=== PATIENT | male | born 1960 | race Caucasian/White ===

== ENCOUNTER 2018-02-19 12:14 | Day surgery (SDC) | payer OTHER ==
[2018-02-19] MEDS ORDERED: LR 1,000 ML IV ONE (12:44)
--- NOTE | 2018-02-19 13:13 | PDGENHP ---
History & Physical Chief Complaint: screening History of Present Illness: 57 year old male presents for screening Pertinent Past, Social, Family History: PMHx: MS Relevant Physical Exam: HEENT: anicteric. CV: RRR +s1s2. lungs: CTAB. Abd: soft, nt, + BS Cardiorespiratory Assessment: ASA 3
--- NOTE | 2018-02-19 13:23 | PDANEPAE ---
ANE History of Present Illness screening ANE Past Medical History - Cardiovascular History Hx Hypertension: No Hx Arrhythmias: No Hx Chest Pain: No Hx Coronary Artery / Peripheral Vascular Disease: No Hx CHF / Valvular Disease: No Hx Palpitations: No Cardiovascular History Comment: bp RUNS LOW - Pulmonary History Hx COPD: No Hx Asthma/Reactive Airway Disease: No Hx Recent Upper Respiratory Infection: No Hx Oxygen in Use at Home: No Hx Sleep Apnea: No Sleep Apnea Screening Result - Last Documented: Negative - Neurologic History Hx Cerebrovascular Accident: No Hx Seizures: No Hx Dementia: No - Endocrine History Hx Diabetes: No - Renal History Hx Renal Disorders: No - Liver History Hx Hepatic Disorders: No - Neurological & Psychiatric Hx Hx Neurological and Psychiatric Disorders: Yes Neurological / Psychiatric History Comment: MS wheelchair bound - Cancer History Hx Cancer: Yes Cancer History Comment: melanoma removed - Congenital Disorder History Hx Congenital Disorders: No - GI History Hx Gastrointestinal Disorders: No - Other Health History Other Health History: glaucoma - Chronic Pain History Chronic Pain: Yes (feet) - Surgical History Prior Surgeries: NONE ANE Review of Systems Review of Systems: - Exercise capacity METS (RN): 3 METS ANE Patient History - Allergies Allergies/Adverse Reactions: No Known Allergies Allergy (Verified 12/22/17 12:15) - Home Medications Home Medications: Baclofen [Lioresal (RX)] 10/03/11 [Last Taken Unknown] Gabapentin [Neurontin 400 MG (RX)] 10/03/11 [Last Taken Unknown] NORTRIPTYLINE HCL [Pamelor 75 mg] 10/03/11 [Last Taken Unknown] Rebif 10/03/11 [Last Taken Unknown] clonAZEPAM [Klonopin] 10/03/11 [Last Taken Unknown] ALPHAGAN P 0.1% (*) 12/22/17 [Last Taken Unknown] AMPYRA 12/22/17 [Last Taken Unknown] Dha 12/22/17 [Last Taken Unknown] Finasteride 12/22/17 [Last Taken Unknown] Fish Oil 1000 mg (*) 12/22/17 [Last Taken Unknown] Lumigan 0.01% (*) 12/22/17 [Last Taken Unknown] Naltrexone 12/22/17 [Last Taken Unknown] Testosterone 12/22/17 [Last Taken Unknown] Trospium Chloride 12/22/17 [Last Taken Unknown] - NPO status NPO Since - Liquids (Date): 02/19/18 NPO Since - Liquids (Time): 12:00 NPO Since - Solids (Date): 02/18/18 NPO Since - Solids (Time): 08:00 - Smoking Hx Smoking Status: Former smoker - Family Anes Hx Family Hx Anesthesia Complications: NONE ANE Labs/Vital Signs - Vital Signs Blood Pressure: 108/66 Heart Rate: 80 Respiratory Rate: 16 O2 Sat (%): 94 Height: 182.88 cm Weight: 74.843 kg ANE Physical Exam - Airway Neck exam: FROM Mallampati Score: Class 1 Mouth exam: normal dental/mouth exam - Pulmonary Pulmonary: no respiratory distress - Cardiovascular Cardiovascular: regular rate and rhythym - ASA Status ASA Status: II ANE Anesthesia Plan Total IV Anesthesia: Yes
[2018-02-19] MEDS ORDERED: PROPOFOL/EMULSION 500 MG/50 ML BOTTLE IV ONE (13:25)
[2018-02-19] MEDS ORDERED: NALOXONE HCL 0.4 MG/ML INJ IVP PRN (13:58)
--- NOTE | 2018-02-19 14:10 | POSTANESTH ---
Post Anesthetic Evaluation Cardiovascular Status: Normal, Stable Respiratory Status: Normal, Stable Level of Consciousness/Mental Status: Can Participate in Eval Pain Control: Adequate, Prn Tx Ordered Nausea/Vomiting Control: Adequate, Prn Tx Ordered Complications Possibly Related to Anesthesia: None Noted
[2018-02-19 15:25] VITALS: BP 110/69
--- NOTE | 2018-02-22 11:09 | GIREPORT ---
Count Includes [facility] Surgical Services - Endoscopy Department Patient Name: Jorge Luis Mauro Procedure Date: 02/19/2018 1:11 PM Patient Type: Outpatient Attending MD/ ER Physician: Mihir Pozo MD Procedure: Colonoscopy Indications: Screening for colorectal malignant neoplasm Patient Profile: 57 year old male presents for screening colonoscopy. Providers: Mihir Pozo MD Medicines: Monitored Anesthesia Care Complications: No immediate complications. Description of Procedure: After obtaining informed consent, the scope was passed under direct vis ion. Throughout the procedure, the patient's blood pressure, pulse, and oxyg en saturations were monitored continuously. The Colonoscope with irrigatio n channel was introduced through the anus and advanced to the cecum, identified by appendiceal orifice and ileocecal valve. The colonoscopy was performed without difficulty. The patient tolerated the procedure well. The quality of the bowel preparation was good. Findings: The perianal and digital rectal examinations were normal. Pertinent negatives include no palpable rectal lesions. The entire examined colon appeared normal. Estimated Blood Loss: Estimated blood loss: none. Post Op Diagnosis: - The entire examined colon is normal. - No specimens collected. Recommendation: - Discharge patient to home (with escort). - Resume previous diet. - Continue present medications. - Repeat colonoscopy in 10 years for screening purposes. - Thank you for allowing me to participate in the care of your patient. Attending Participation: I personally performed the entire procedure. Mihir Pozo MD Mihir Pozo MD 02/19/2018 2:19:45 PM This report has been signed electronicallyMihir Pozo MD Number of Addenda: 0 Note Initiated On: 02/19/2018 1:11 PM Total Procedure Duration Time 0 hours 25 minutes 0 seconds [email or web address]
== END 2018-02-19 15:20 | disposition home or self-care (01) ==
LOC: FSGY 12:14
PROVIDERS: ATTEND Internal Medicine Gastroenterology
PROC: 0DJD8ZZ Inspection of Lower Intestinal Tract, Via Natural or Artificial Opening Endoscopic (ICD-10-PCS; principal; 2018-02-19 13:30)
DX: Z12.11 Encounter for screening for malignant neoplasm of colon (principal)
CPT/HCPCS: J2704

== ENCOUNTER → 2018-04-02 | Outpatient (CLI) | payer OTHER | LOC: FIMAGING 18:25 | PROVIDERS: ATTEND Specialist | DX: G35 Multiple sclerosis (principal); R39.15 Urgency of urination; N21.0 Calculus in bladder; K59.00 Constipation, unspecified ==